=== PATIENT | male | born 1950 | race Caucasian/White ===

== ENCOUNTER → 2023-10-21 08:48 | Outpatient (CLI) | payer OTHER, SELFPAY ==
[2023-10-21 10:24] LABS: Add Manual Diff / Slide Review NO; Basophils Absolute Auto 0 /uL (0-100); Basophils Percent Auto 0.8 % (0-2); Eosinophils Absolute Auto 100 /uL (0-450); Eosinophils Percent Auto 1.9 % (2-4); Hemoglobin 15.6 g/dL (13.5-17.5); Lymphocytes Absolute Auto 800 /uL (1100-4500); Lymphocytes Percent Auto 13.3 % (25-40); Mean Corpuscular HGB Conc 34.6 % (30-36); Mean Corpuscular Hemoglobin 32.6 PG (26-34); Mean Corpuscular Volume 94.1 fL (80-100); Monocytes Absolute Auto 800 /uL (0-900); Monocytes Percent Auto 14.1 % (3-14); Neutrophils Absolute Auto 4100 /uL (1500-7000); Neutrophils Percent Auto 69.9 % (50-75); Platelet Count 253 X10^3/uL (150-400); Red Blood Cell Count 4.78 X10^6/uL (4.5-5.9); Red Cell Distribution Width 12.8 % (11.6-14.8); White Blood Cell Count 5.9 X10^3/uL (4.5-11.0)
[2023-10-21 11:06] LABS: Alanine Aminotransferase 24 IU/L (<50); Albumin 4.4 g/dL (3.5-5.0); Albumin Globulin Ratio 1.4 (1.0-2.8); Alkaline Phosphatase 61 U/L (38-126); Aspartate Aminotransferase 30 IU/L (17-59); BUN Creatinine Ratio 16.9 (6-22); Bilirubin Total 0.9 mg/dL (0.2-1.3); Blood Urea Nitrogen 14 mg/dL (9-20); Calcium 10.1 mg/dL (8.4-10.2); Carbon Dioxide 28 mmol/L (22-32); Chloride 100 mmol/L (98-107); Cholesterol 245 mg/dL (140-199); Estimated Glomerular Filt Rate > 60 mL/min (>60); Globulin 3.2 g/dL (1.7-4.1); Glucose 134 mg/dL (80-110); HDL Cholesterol 54 mg/dL (40-60); HEMOLYSIS < 15 (0-50); LDL Cholesterol Calculated 164 mg/dL (<100); Potassium 4.9 mmol/L (3.4-5.1); Sodium 137 mmol/L (137-145); Total Protein 7.6 g/dL (6.3-8.2); Triglycerides 135 mg/dL (35-150)
[2023-10-22 17:43] LABS: Hep C Virus Ab w/Reflex Quant NEGATIVE s/c (NEGATIVE)
== END ==
PROVIDERS: Family Provider Family Medicine; PCP Family Medicine; Referring Provider Family Medicine; Visit Provider Family Medicine
DX: F32.A Depression, unspecified (principal); I10 Essential (primary) hypertension; F17.200 Nicotine dependence, unspecified, uncomplicated; Z11.59 Encounter for screening for other viral diseases
CPT/HCPCS: 36415; 80053; 80061; 85025; 86803

== ENCOUNTER → 2024-11-17 11:53 | Outpatient (CLI) | payer OTHER, SELFPAY ==
[2024-11-18 11:14] LABS: Fecal Immunochemical Test Positive (Negative)
== END ==
LOC: LAB 11:54
PROVIDERS: Family Provider Family Medicine; PCP Family Medicine; Referring Provider Family Medicine; Visit Provider Family Medicine
DX: Z12.11 Encounter for screening for malignant neoplasm of colon (principal)
CPT/HCPCS: 82274

== ENCOUNTER → 2024-11-25 11:24 | Outpatient (CLI) | payer OTHER, SELFPAY ==
[2024-11-25 12:08] LABS: Hematocrit 41.1 % (41-53); Hemoglobin 13.7 g/dL (13.5-17.5); Mean Corpuscular HGB Conc 33.3 % (30-36); Mean Corpuscular Hemoglobin 28.8 PG (26-34); Mean Corpuscular Volume 86.4 fL (80-100); Platelet Count 453 X10^3/uL (150-400); Red Blood Cell Count 4.76 X10^6/uL (4.5-5.9); Red Cell Distribution Width 14.3 % (11.6-14.8); White Blood Cell Count 6.6 X10^3/uL (4.5-11.0)
[2024-11-25 12:37] LABS: Alanine Aminotransferase 16 IU/L (<50); Albumin 4.3 g/dL (3.5-5.0); Albumin Globulin Ratio 1.4 (1.0-2.8); Alkaline Phosphatase 98 U/L (38-126); Aspartate Aminotransferase 25 IU/L (17-59); BUN Creatinine Ratio 13.2 (6-22); Bilirubin Total 0.5 mg/dL (0.2-1.3); Blood Urea Nitrogen 10 mg/dL (9-20); Calcium 9.4 mg/dL (8.4-10.2); Carbon Dioxide 25 mmol/L (22-32); Chloride 100 mmol/L (98-107); Cholesterol 189 mg/dL (140-199); Estimated Glomerular Filt Rate > 60 mL/min (>60); Globulin 3.1 g/dL (1.7-4.1); Glucose 112 mg/dL (80-110); HDL Cholesterol 51 mg/dL (40-60); HEMOLYSIS < 15 (0-50); LDL Cholesterol Calculated 104 mg/dL (<100); Potassium 4.5 mmol/L (3.4-5.1); Sodium 136 mmol/L (137-145); Total Protein 7.4 g/dL (6.3-8.2); Triglycerides 168 mg/dL (35-150)
== END ==
PROVIDERS: Family Provider Family Medicine; PCP Family Medicine; Referring Provider Family Medicine; Visit Provider Family Medicine
DX: R10.2 Pelvic and perineal pain (principal); E78.5 Hyperlipidemia, unspecified; Z00.00 Encounter for general adult medical examination without abnormal findings; I10 Essential (primary) hypertension
CPT/HCPCS: 36415; 80053; 80061; 85027

== ENCOUNTER → 2025-01-09 11:47 | Outpatient (CLI) | payer OTHER, SELFPAY ==
--- NOTE | 2025-01-09 11:49 | DI.CT.S_ITS ---
PROCEDURE: CT LUNG LOW DOSE SCREENING INDICATIONS: screening TECHNIQUE: Noncontrast 2.0-2.5 mm thick sections acquired from the pulmonary apices to the posterior costophrenic angles. 7 mm thick axial MIP, and 5 mm coronal and sagittal reformats were then acquired. For radiation dose reduction, the following was used: automated exposure control, adjustment of mA and/or kV according to patient size. COMPARISON: None. FINDINGS: Image quality: Diagnostic. Lower Neck: No enlarged lymph nodes. Thyroid: No thyroid nodules which require sonographic follow up, per consensus guidelines. Axillae: No enlarged lymph nodes. Chest Wall: Unremarkable. Bones: No suspicious osseous lesion. Lungs and Pleura: No pneumothorax or pleural effusions. Mild emphysematous change. Mild secretions in the lower trachea. No consolidation or suspicious nodules. Heart: Heart size is normal. Moderate to severe coronary artery calcifications. No pericardial effusion. Thoracic Vessels: The aorta and pulmonary arteries demonstrate normal size. Mediastinum and Ashia: No enlarged lymph nodes. Esophagus: No wall thickening. No hiatal hernia. Upper Abdomen: Visualized upper abdomen solid organs and bowel loops appear normal. IMPRESSION: No suspicious pulmonary nodules. LUNG-RADS 1; continued annual screening, if eligible. Clinically Significant Non-pulmonary Findings: Moderate to severe coronary artery calcifications. Dictated by: Syed Coleman M.D. on 01/09/2025 at 17:26 Approved by: Syed Coleman M.D. on 01/09/2025 at 17:30
--- NOTE | 2025-01-09 11:49 | DI.US.S_ITS ---
PROCEDURE: US ABD AORTA ANEURYSM SCREEN INDICATIONS: screening TECHNIQUE: Real time scanning was performed of the aorta and iliac arteries, with image documentation. COMPARISON: None. FINDINGS: Aorta: Proximal aortic diameter measures 2.4 cm. Mid-aorta measures 2.1 cm. Distal aortic diameter is 1.9 cm. Iliac arteries: Right common iliac artery measures 0.9 cm. Left common iliac artery measures 0.9 cm. IMPRESSION: Negative for aneurysm. Dictated by: Shree Snider M.D. on 01/09/2025 at 12:32 Approved by: Shree Snider M.D. on 01/09/2025 at 12:32
== END ==
PROVIDERS: Family Provider Family Medicine; PCP Family Medicine; Referring Provider Family Medicine; Visit Provider Family Medicine
DX: F17.210 Nicotine dependence, cigarettes, uncomplicated (principal); Z12.2 Encounter for screening for malignant neoplasm of respiratory organs; Z13.6 Encounter for screening for cardiovascular disorders; I25.10 Atherosclerotic heart disease of native coronary artery without angina pectoris
CPT/HCPCS: 71271; 76706

== ENCOUNTER 2025-02-02 07:16 | Day surgery (SDC) | payer OTHER, SELFPAY ==
[2025-02-02 08:10] VITALS: BP 100/62; PULSE 92; RESP 18; TEMP 36.5; O2SAT 97
[2025-02-02] MEDS: LACTATED RINGERS 1,000 ML 42 ML IV (08:10)
--- NOTE | 2025-02-02 08:15 | PM.HP.IH.1 ---
History of Present Illness History of Present Illness Date Patient Seen: 02/02/25 Time Patient Seen: 08:15 Chief complaint: Screening Colonoscopy Narrative: Lele is a 74-year-old man who presents for a colonoscopy. He has never had 1 before. He reports that he has had burning pain near his rectum recently. He denies straining. He denies constipation. He denies hard stools. [facility] Medical History (Updated 02/02/25 @ 08:16 by Jose Gibbons MD) Hyperlipidemia Encounter for subsequent annual wellness visit (AWV) in Medicare patient Cervical radiculopathy History of Guillain-Gonvick syndrome Guillain-Gonvick Depression, unspecified Tobacco dependence Benign essential HTN Social History Smoking Status: Current every day smoker alcohol intake: current Meds Home Medications and Allergies Home Medications Medication Instructions Recorded Confirmed Type atorvastatin 20 mg tablet (Lipitor) 20 mg PO DAILY #90 tabs 11/25/24 02/02/25 Rx duloxetine 30 mg capsule,delayed 30 mg PO DAILY #90 caps 11/25/24 02/02/25 Rx release (Cymbalta) losartan 25 mg tablet 25 mg PO DAILY blood pressure #90 11/25/24 02/02/25 Rx tabs naproxen 500 mg tablet 500 mg PO BID PRN pain #60 tabs 11/25/24 02/02/25 Rx Allergies Allergy/AdvReac Type Severity Reaction Status Date / Time No Known Drug Allergies Allergy Verified 02/02/25 07:40 Exam Vital Signs (past 8 hours): - 02/02/25 08:10 Temperature 97.7 F Pulse Rate 92 H Respiratory Rate 18 Blood Pressure 100/62 Pulse Oximetry 97 Oxygen Delivery Method Room Air Oxygen Delivery Method Room Air Const General: No acute distress Assessment & Plan Assessment and plan (1) Colon cancer screening: Status: Acute Plan Colonoscopy Time-Based Coding :: [TOTAL MINUTES] spent with patient and on the chart (including review of chart, obtaining history, exam, reviewing outside data, placing orders, documenting exam and treatment plan, and counseling patient) on [DATE]. [employer] Document charge(s): No
--- NOTE | 2025-02-02 08:28 | PM.OP.COLON ---
Operative Date/Time/Diagnoses Date of procedure: 02/02/25 Time of procedure: 08:28 Pre-op diagnosis: Colon cancer screening Post-op diagnosis: same Procedure & Clinicians Study performed: Colonoscopy (aborted) Same procedure as scheduled: Yes Surgeon: Jose Gibbons Procedure Notes Procedure in detail: Surgeon: Jose Gibbons MD Anesthesia: Brandi Chavira CRNA Procedure: The patient was brought to the endoscopy suite, placed in left lateral decubitus position. The patient was connected to monitoring devices. A time-out was performed. Sedation was administered. Once the patient was adequately sedated, a digital rectal exam was performed and was significant for semi solid stool in the rectal vault. The colonoscope was inserted into the rectum but there was copious semi solid stool in the rectum and the procedure was terminated. The scope was removed. The patient was awakened and brought to recovery. Scope withdrawal time: Not applicable Sedation time: 1 minute EBL: 0 Findings: Inadequate prep Post-procedure Disposition: PACU
[2025-02-02 08:32] VITALS: BP 90/54; PULSE 85; RESP 12; TEMP 36.2; O2SAT 94
[2025-02-02 08:45] VITALS: BP 96/54; PULSE 86; RESP 16; O2SAT 99
== END 2025-02-02 08:58 | disposition home or self-care (01) ==
PROVIDERS: Family Provider Family Medicine; PCP Family Medicine; Referring Provider Surgery; Visit Provider Surgery
PROC: 0DJD8ZZ Inspection of Lower Intestinal Tract, Via Natural or Artificial Opening Endoscopic (ICD-10-PCS; CPT 45378; principal; 2025-02-02 08:30)
DX: Z12.11 Encounter for screening for malignant neoplasm of colon (principal); Z53.09 Procedure and treatment not carried out because of other contraindication
CPT/HCPCS: G0121; J2704

== ENCOUNTER 2025-02-05 15:08 | Emergency (ER) | payer OTHER, SELFPAY ==
[2025-02-05] VITALS (15 sets, daily range): BP systolic 102–126; BP diastolic 56–63; PULSE 68–86; RESP 13–22; TEMP 37; O2SAT 91–99; BMI 20.2
[2025-02-05 17:28] LABS: Bacteria Urine Many (>30); Culture Indicated Urine Specimen Cultured; RBC Urine 0-1/HPF (0-5/HPF); Squamous Epithelial Cell Urine 0-1 /HPF (0-5/HPF); Urine Volume 10mL (spun); WBC Urine 0-1/HPF (0-5/HPF)
--- NOTE | 2025-02-05 17:50 | ED.ABDPAIN ---
HPI - Abdominal Pain <Romy Peralta PA-C - Last Filed: 02/05/25 19:50> General Chief Complaint: Abdominal Pain Stated Complaint: abd px Time Seen by Provider: 02/05/25 17:50 History of Present Illness HPI narrative: Mr. Painter is a pleasant 74-year-old male with a past medical history of mood disorder, hypertension, hyperlipidemia who presents to the emergency department for acute on chronic rectal pain. Patient states he has been suffering with rectal pain for the last few months and he was supposed to have a colonoscopy earlier this month however it was failed because he did not have a good bowel prep. States it is rectal pain has been getting worse recently. His rectal pain is always present, it is worse before a bowel movement and somewhat relieved after a bowel movement. His doctor had prescribed him naproxen for the pain however this makes him throw up so it does not help. Tylenol does help a little bit. He denies any nausea, vomiting, fevers, chills, chest pain, shortness of breath, black or bloody stools. He does not engage in any anal intercourse. Denies dysuria but he does go small amounts frequently. Related Data Previous Rx's Medication Instructions Recorded atorvastatin 20 mg tablet (Lipitor) 20 mg PO DAILY #90 tabs 11/25/24 duloxetine 30 mg capsule,delayed 30 mg PO DAILY #90 caps 11/25/24 release (Cymbalta) losartan 25 mg tablet 25 mg PO DAILY blood pressure #90 11/25/24 tabs Allergies Allergy/AdvReac Type Severity Reaction Status Date / Time No Known Drug Allergies Allergy Verified 02/02/25 07:40 Review of Systems <Romy Peralta PA-C - Last Filed: 02/05/25 19:50> Review of Systems ROS Unobtainable: All systems reviewed & are unremarkable except as noted in HPI and below Patient History <Romy Peralta PA-C - Last Filed: 02/05/25 19:50> Medical History Hyperlipidemia Encounter for subsequent annual wellness visit (AWV) in Medicare patient Cervical radiculopathy History of Guillain-Ixonia syndrome Guillain-Ixonia Depression, unspecified Tobacco dependence Benign essential HTN Social History Smoking Status: Current every day smoker alcohol intake: current Smoking Status: Current every day smoker tobacco type: cigarettes Exam <Romy Peralta PA-C - Last Filed: 02/05/25 19:50> Narrative Exam Narrative: GENERAL: 74 year old patient appears stated age. Thin patient, in no acute distress. HEAD: Atraumatic. Normocephalic. ENT: Nose without bleeding, purulent drainage. Airway patent. CARDIOVASCULAR: Regular rate and rhythm. RESPIRATORY: Nonlabored respirations. Speaking in clear, full sentences. Clear to auscultation. GASTROINTESTINAL: Abdomen soft, non-tender, nondistended. RECTAL: Small external skin tag on anus, no palpable internal hemorrhoids. He does have what appears to be palpable enlarged prostate versus mass structure, decreased rectal tone. No blood. NEURO: AOx3. Very hard of hearing. Clear speech. Moves all 4 extremities appropriately. SKIN: No rash or erythema of visible areas Initial Vital Signs Initial Vital Signs: Vital Signs Temperature 98.6 F 02/05/25 15:16 Pulse Rate 86 02/05/25 15:16 Respiratory Rate 18 02/05/25 15:16 Blood Pressure 126/59 L 02/05/25 15:16 Pulse Oximetry 97 02/05/25 15:16 Oxygen Delivery Method Room Air 02/05/25 15:16 <Isaías Siu MD - Last Filed: 02/06/25 00:14> Initial Vital Signs Initial Vital Signs: Vital Signs Temperature 98.6 F 02/05/25 15:16 Pulse Rate 86 02/05/25 15:16 Respiratory Rate 18 02/05/25 15:16 Blood Pressure 126/59 L 02/05/25 15:16 Pulse Oximetry 97 02/05/25 15:16 Oxygen Delivery Method Room Air 02/05/25 15:16 Course <Romy Peralta PA-C - Last Filed: 02/05/25 19:50> Orders Ordered: ED Orders 02/05/25 17:15 Urine Culture Stat Urine Microscopic Stat 02/05/25 17:45 Complete Blood Count AUTO DIFF Stat Comprehensive Metabolic Panel Stat Lipase Stat 02/05/25 17:57 CT abdomen pelvis w con Stat 02/05/25 19:40 Type and Screen Stat 02/05/25 19:50 Blood Culture Stat 02/05/25 23:17 Hemoglobin and Hematocrit Stat Ondansetron HCl (Ondansetron 4 Mg/2 Ml Inj) 4 mg IV NOW PRN PRN Reason: Nausea And Vomiting Last Admin: 02/05/25 18:14 Dose: 4 mg Documented By: MARQUIS Ondansetron HCl (Ondansetron 4 Mg Odt) 4 mg PO NOW PRN PRN Reason: Nausea And Vomiting Discontinued Medications Hydromorphone HCl (Hydromorphone 0.5 Mg Inj) 0.5 mg IV NOW ONE Stop: 02/05/25 22:13 Last Admin: 02/05/25 22:29 Dose: 0.5 mg Documented By: MARYSOL Sodium Chloride (Normal Saline 0.9%) 1,000 mls @ 1,000 mls/hr IV BOLUS ONE Stop: 02/05/25 19:17 Last Infusion: 02/05/25 19:52 Dose: Infused Documented By: Admin: 02/05/25 18:38 Dose: 1,000 mls/hr Documented By: MARQUIS Piperacillin Sod/Tazobactam (Sod 4.5 gm/ Sodium Chloride) 100 mls @ 200 mls/hr IV NOW ONE Stop: 02/05/25 19:00 Last Infusion: 02/05/25 20:27 Dose: Infused Documented By: Admin: 02/05/25 19:52 Dose: 200 mls/hr Documented By: NICHOLAS Ketorolac Tromethamine (Ketorolac 30 Mg/Ml Vial) 15 mg IV NOW ONE Stop: 02/05/25 17:57 Last Admin: 02/05/25 18:14 Dose: 15 mg Documented By: MARQUIS Consultations Consultation #1: Called by radiologist informed of CT revealing rectal cancer with perforation and mets, free air and free fluid, liver Mets, gas in sacrum. Consulting with attending ED physician. Time: 18:53 Vital Signs Vital signs: Vital Signs - 8 hr 02/05/25 18:37 02/05/25 19:00 02/05/25 19:03 Temperature Pulse Rate 78 79 Respiratory Rate Blood Pressure 118/59 L Pulse Oximetry 99 91 Oxygen Delivery Method 02/05/25 19:03 02/05/25 19:30 02/05/25 19:30 Temperature Pulse Rate 78 79 Respiratory Rate 18 Blood Pressure 116/58 L Pulse Oximetry 94 96 Oxygen Delivery Method 02/05/25 20:00 02/05/25 20:00 02/05/25 20:29 Temperature Pulse Rate 72 78 Respiratory Rate Blood Pressure 123/61 Pulse Oximetry 96 96 Oxygen Delivery Method Room Air 02/05/25 20:30 02/05/25 21:00 02/05/25 21:00 Temperature Pulse Rate 68 Respiratory Rate Blood Pressure 102/58 L 118/61 Pulse Oximetry 92 Oxygen Delivery Method 02/05/25 21:30 02/05/25 21:30 02/05/25 22:00 Temperature Pulse Rate 69 74 Respiratory Rate 20 20 Blood Pressure 113/63 Pulse Oximetry 92 92 Oxygen Delivery Method 02/05/25 22:00 02/05/25 22:30 02/05/25 22:30 Temperature Pulse Rate 79 Respiratory Rate 20 Blood Pressure 109/56 L 122/62 Pulse Oximetry 96 Oxygen Delivery Method Room Air 02/05/25 23:00 02/05/25 23:30 02/05/25 23:38 Temperature Pulse Rate 68 76 Respiratory Rate 19 13 Blood Pressure 123/62 Pulse Oximetry 95 93 Oxygen Delivery Method Room Air 02/05/25 23:38 Temperature 98.6 F Pulse Rate 69 Respiratory Rate 22 Blood Pressure Pulse Oximetry 93 Oxygen Delivery Method <Isaías Siu MD - Last Filed: 02/06/25 00:14> Orders Ordered: ED Orders 02/05/25 17:15 Urine Culture Stat Urine Microscopic Stat 02/05/25 17:45 Complete Blood Count AUTO DIFF Stat Comprehensive Metabolic Panel Stat Lipase Stat 02/05/25 17:57 CT abdomen pelvis w con Stat 02/05/25 19:40 Type and Screen Stat 02/05/25 19:50 Blood Culture Stat 02/05/25 23:17 Hemoglobin and Hematocrit Stat Ondansetron HCl (Ondansetron 4 Mg/2 Ml Inj) 4 mg IV NOW PRN PRN Reason: Nausea And Vomiting Last Admin: 02/05/25 18:14 Dose: 4 mg Documented By: MARQUIS Ondansetron HCl (Ondansetron 4 Mg Odt) 4 mg PO NOW PRN PRN Reason: Nausea And Vomiting Discontinued Medications Hydromorphone HCl (Hydromorphone 0.5 Mg Inj) 0.5 mg IV NOW ONE Stop: 02/05/25 22:13 Last Admin: 02/05/25 22:29 Dose: 0.5 mg Documented By: MARYSOL Sodium Chloride (Normal Saline 0.9%) 1,000 mls @ 1,000 mls/hr IV BOLUS ONE Stop: 02/05/25 19:17 Last Infusion: 02/05/25 19:52 Dose: Infused Documented By: Admin: 02/05/25 18:38 Dose: 1,000 mls/hr Documented By: MARQUIS Piperacillin Sod/Tazobactam (Sod 4.5 gm/ Sodium Chloride) 100 mls @ 200 mls/hr IV NOW ONE Stop: 02/05/25 19:00 Last Infusion: 02/05/25 20:27 Dose: Infused Documented By: Admin: 02/05/25 19:52 Dose: 200 mls/hr Documented By: NICHOLAS Ketorolac Tromethamine (Ketorolac 30 Mg/Ml Vial) 15 mg IV NOW ONE Stop: 02/05/25 17:57 Last Admin: 02/05/25 18:14 Dose: 15 mg Documented By: MARQUIS Vital Signs Vital signs: Vital Signs - 8 hr 02/05/25 18:37 02/05/25 19:00 02/05/25 19:03 Temperature Pulse Rate 78 79 Respiratory Rate Blood Pressure 118/59 L Pulse Oximetry 99 91 Oxygen Delivery Method 02/05/25 19:03 02/05/25 19:30 02/05/25 19:30 Temperature Pulse Rate 78 79 Respiratory Rate 18 Blood Pressure 116/58 L Pulse Oximetry 94 96 Oxygen Delivery Method 02/05/25 20:00 02/05/25 20:00 02/05/25 20:29 Temperature Pulse Rate 72 78 Respiratory Rate Blood Pressure 123/61 Pulse Oximetry 96 96 Oxygen Delivery Method Room Air 02/05/25 20:30 02/05/25 21:00 02/05/25 21:00 Temperature Pulse Rate 68 Respiratory Rate Blood Pressure 102/58 L 118/61 Pulse Oximetry 92 Oxygen Delivery Method 02/05/25 21:30 02/05/25 21:30 02/05/25 22:00 Temperature Pulse Rate 69 74 Respiratory Rate 20 20 Blood Pressure 113/63 Pulse Oximetry 92 92 Oxygen Delivery Method 02/05/25 22:00 02/05/25 22:30 02/05/25 22:30 Temperature Pulse Rate 79 Respiratory Rate 20 Blood Pressure 109/56 L 122/62 Pulse Oximetry 96 Oxygen Delivery Method Room Air 02/05/25 23:00 02/05/25 23:30 02/05/25 23:38 Temperature Pulse Rate 68 76 Respiratory Rate 19 13 Blood Pressure 123/62 Pulse Oximetry 95 93 Oxygen Delivery Method Room Air 02/05/25 23:38 Temperature 98.6 F Pulse Rate 69 Respiratory Rate 22 Blood Pressure Pulse Oximetry 93 Oxygen Delivery Method MDM - Abdominal Pain <Romy Peralta PA-C - Last Filed: 02/05/25 19:50> Medical Records Attestation: I reviewed the patient's medical records. Lab Data 02/05/25 23:17 02/05/25 17:45 Labs: Lab Results 02/05/25 02/05/25 02/05/25 Range/Units 17:15 17:45 19:40 WBC 7.6 (4.5-11.0) X10^3/uL RBC 3.34 L (4.5-5.9) X10^6/uL Hgb 8.5 L (13.5-17.5) g/dL Hct 25.9 L (41-53) % MCV 77.5 L (80-100) fL MCH 25.5 L (26-34) PG MCHC 32.9 (30-36) % RDW 15.8 H (11.6-14.8) % Plt Count 491 H (150-400) X10^3/uL Neut % (Auto) 80.9 H (50-75) % Lymph % (Auto) 5.9 L (25-40) % [place] % (Auto) 12.5 (3-14) % Eos % (Auto) 0.4 L (2-4) % Baso % (Auto) 0.3 (0-2) % Neut # (Auto) 6100 (9666-2453) /uL Lymph # (Auto) 400 L (3397-2152) /uL [place] # (Auto) 900 (0-900) /uL Eos # (Auto) 0 (0-450) /uL Baso # (Auto) 0 (0-100) /uL Sodium 130 L (137-145) mmol/L Potassium 3.5 (3.4-5.1) mmol/L Chloride 94 L (98-107) mmol/L Carbon Dioxide 31 (22-32) mmol/L BUN 12 (9-20) mg/dL Creatinine 0.65 L (0.66-1.25) mg/dL Estimated GFR > 60 (>60) mL/min BUN/Creatinine Ratio 18.5 (6-22) Glucose 105 H (70-99) mg/dL Calcium 8.4 (8.4-10.2) mg/dL Total Bilirubin 0.6 (0.2-1.3) mg/dL AST 27 (17-59) IU/L ALT 17 (<50) IU/L Alkaline Phosphatase 101 (38-126) U/L Total Protein 6.6 (6.3-8.2) g/dL Albumin 3.1 L (3.5-5.0) g/dL Globulin 3.5 (1.7-4.1) g/dL Albumin/Globulin Ratio 0.9 L (1.0-2.8) Lipase 55 (23-300) U/L Urine RBC 0-1/hpf (0-5/HPF) Urine WBC 0-1/hpf (0-5/HPF) Ur Squamous Epith Cells 0-1 /hpf (0-5/HPF) Urine Bacteria Many (>30) H (None) Ur Culture Indicated? Specimen cultured Vol Urine Centrifuged 10ml (spun) Blood Type A Positive Antibody Screen Negative 02/05/25 Range/Units 23:17 WBC (4.5-11.0) X10^3/uL RBC (4.5-5.9) X10^6/uL Hgb 7.4 L (13.5-17.5) g/dL Hct 22.4 L (41-53) % MCV (80-100) fL MCH (26-34) PG MCHC (30-36) % RDW (11.6-14.8) % Plt Count (150-400) X10^3/uL Neut % (Auto) (50-75) % Lymph % (Auto) (25-40) % [place] % (Auto) (3-14) % Eos % (Auto) (2-4) % Baso % (Auto) (0-2) % Neut # (Auto) (5288-3596) /uL Lymph # (Auto) (1801-2774) /uL [place] # (Auto) (0-900) /uL Eos # (Auto) (0-450) /uL Baso # (Auto) (0-100) /uL Sodium (137-145) mmol/L Potassium (3.4-5.1) mmol/L Chloride (98-107) mmol/L Carbon Dioxide (22-32) mmol/L BUN (9-20) mg/dL Creatinine (0.66-1.25) mg/dL Estimated GFR (>60) mL/min BUN/Creatinine Ratio (6-22) Glucose (70-99) mg/dL Calcium (8.4-10.2) mg/dL Total Bilirubin (0.2-1.3) mg/dL AST (17-59) IU/L ALT (<50) IU/L Alkaline Phosphatase (38-126) U/L Total Protein (6.3-8.2) g/dL Albumin (3.5-5.0) g/dL Globulin (1.7-4.1) g/dL Albumin/Globulin Ratio (1.0-2.8) Lipase (23-300) U/L Urine RBC (0-5/HPF) Urine WBC (0-5/HPF) Ur Squamous Epith Cells (0-5/HPF) Urine Bacteria (None) Ur Culture Indicated? Vol Urine Centrifuged Blood Type Antibody Screen Point of care testing: Urine Dip Bedside Urine Glucose Negative Bedside Urine Bilirubin - Negative Bedside Urine Ketone - Negative Urine Specific [place] 1.010 Bedside Urine Occult Blood +/- Bedside Urine pH 6.0 Bedside Urine Protein +/- 15 Bedside Urine Urobilinogen 1+ 2mg Bedside Urine Nitrite + Positive Bedside Urine Leukocytes - Negative Esterase MDM Narrative Medical decision making narrative: 74-year-old male with a past medical history of mood disorder, hypertension, hyperlipidemia who presents to the emergency department for acute on chronic rectal pain. Differential diagnosis includes but is not limited to rectal abscess, internal hemorrhoids, and large prostate, proctitis, diverticulitis, etc. On exam patient is in no acute distress, nontoxic appearing, vital signs appropriate. External rectal exam reveals no gross blood on internal exam, there is decreased rectal tone and palpable enlarged prostate versus masslike structure we will proceed with CBC, CMP, UA, CT abdomen and pelvis with IV contrast, treat pain with Toradol. <Isaías Siu MD - Last Filed: 02/06/25 00:14> Lab Data Labs: Lab Results 02/05/25 02/05/25 02/05/25 Range/Units 17:15 17:45 19:40 WBC 7.6 (4.5-11.0) X10^3/uL RBC 3.34 L (4.5-5.9) X10^6/uL Hgb 8.5 L (13.5-17.5) g/dL Hct 25.9 L (41-53) % MCV 77.5 L (80-100) fL MCH 25.5 L (26-34) PG MCHC 32.9 (30-36) % RDW 15.8 H (11.6-14.8) % Plt Count 491 H (150-400) X10^3/uL Neut % (Auto) 80.9 H (50-75) % Lymph % (Auto) 5.9 L (25-40) % [place] % (Auto) 12.5 (3-14) % Eos % (Auto) 0.4 L (2-4) % Baso % (Auto) 0.3 (0-2) % Neut # (Auto) 6100 (1214-4493) /uL Lymph # (Auto) 400 L (0270-8608) /uL [place] # (Auto) 900 (0-900) /uL Eos # (Auto) 0 (0-450) /uL Baso # (Auto) 0 (0-100) /uL Sodium 130 L (137-145) mmol/L Potassium 3.5 (3.4-5.1) mmol/L Chloride 94 L (98-107) mmol/L Carbon Dioxide 31 (22-32) mmol/L BUN 12 (9-20) mg/dL Creatinine 0.65 L (0.66-1.25) mg/dL Estimated GFR > 60 (>60) mL/min BUN/Creatinine Ratio 18.5 (6-22) Glucose 105 H (70-99) mg/dL Calcium 8.4 (8.4-10.2) mg/dL Total Bilirubin 0.6 (0.2-1.3) mg/dL AST 27 (17-59) IU/L ALT 17 (<50) IU/L Alkaline Phosphatase 101 (38-126) U/L Total Protein 6.6 (6.3-8.2) g/dL Albumin 3.1 L (3.5-5.0) g/dL Globulin 3.5 (1.7-4.1) g/dL Albumin/Globulin Ratio 0.9 L (1.0-2.8) Lipase 55 (23-300) U/L Urine RBC 0-1/hpf (0-5/HPF) Urine WBC 0-1/hpf (0-5/HPF) Ur Squamous Epith Cells 0-1 /hpf (0-5/HPF) Urine Bacteria Many (>30) H (None) Ur Culture Indicated? Specimen cultured Vol Urine Centrifuged 10ml (spun) Blood Type A Positive Antibody Screen Negative 02/05/25 Range/Units 23:17 WBC (4.5-11.0) X10^3/uL RBC (4.5-5.9) X10^6/uL Hgb 7.4 L (13.5-17.5) g/dL Hct 22.4 L (41-53) % MCV (80-100) fL MCH (26-34) PG MCHC (30-36) % RDW (11.6-14.8) % Plt Count (150-400) X10^3/uL Neut % (Auto) (50-75) % Lymph % (Auto) (25-40) % [place] % (Auto) (3-14) % Eos % (Auto) (2-4) % Baso % (Auto) (0-2) % Neut # (Auto) (7652-9352) /uL Lymph # (Auto) (1905-2350) /uL [place] # (Auto) (0-900) /uL Eos # (Auto) (0-450) /uL Baso # (Auto) (0-100) /uL Sodium (137-145) mmol/L Potassium (3.4-5.1) mmol/L Chloride (98-107) mmol/L Carbon Dioxide (22-32) mmol/L BUN (9-20) mg/dL Creatinine (0.66-1.25) mg/dL Estimated GFR (>60) mL/min BUN/Creatinine Ratio (6-22) Glucose (70-99) mg/dL Calcium (8.4-10.2) mg/dL Total Bilirubin (0.2-1.3) mg/dL AST (17-59) IU/L ALT (<50) IU/L Alkaline Phosphatase (38-126) U/L Total Protein (6.3-8.2) g/dL Albumin (3.5-5.0) g/dL Globulin (1.7-4.1) g/dL Albumin/Globulin Ratio (1.0-2.8) Lipase (23-300) U/L Urine RBC (0-5/HPF) Urine WBC (0-5/HPF) Ur Squamous Epith Cells (0-5/HPF) Urine Bacteria (None) Ur Culture Indicated? Vol Urine Centrifuged Blood Type Antibody Screen Point of care testing: Urine Dip Bedside Urine Glucose Negative Bedside Urine Bilirubin - Negative Bedside Urine Ketone - Negative Urine Specific [place] 1.010 Bedside Urine Occult Blood +/- Bedside Urine pH 6.0 Bedside Urine Protein +/- 15 Bedside Urine Urobilinogen 1+ 2mg Bedside Urine Nitrite + Positive Bedside Urine Leukocytes - Negative Esterase MDM Narrative Medical decision making narrative: 74-year-old male with a past medical history of mood disorder, hypertension, hyperlipidemia who presents to the emergency department for acute on chronic rectal pain. Differential diagnosis includes but is not limited to rectal abscess, internal hemorrhoids, and large prostate, proctitis, diverticulitis, etc. On exam patient is in no acute distress, nontoxic appearing, vital signs appropriate. External rectal exam reveals no gross blood on internal exam, there is decreased rectal tone and palpable enlarged prostate versus masslike structure we will proceed with CBC, CMP, UA, CT abdomen and pelvis with IV contrast, treat pain with Toradol. 02/05/25, Salbador Tellez. 74-year-old male with history of hypertension, has 1 month duration rectal pain, was scheduled for colonoscopy with local surgeon 02/02/2025 which was canceled due to poor GI prep, had been taking naproxen but discontinued this due to associated nausea and vomiting nonbloody, has increasing and more constant rectal pain. No hematochezia or melena symptoms. Hemoglobin 8.5 today lower than previous comparison 13.[address] abdomen and pelvis ordered. Assumed care. CT abdomen and pelvis with IV contrast. Impressions: ?Abnormal rectal wall thickening seen, with adjacent free air and free fluid, representing perforated neoplasm until proven otherwise. Gas is seen within the right aspect of the sacrum, which is attributed to bony involvement for this patient's neoplasm. Hypo enhancing masses can be seen within the liver, representing metastatic disease until proven otherwise. Colonic diverticulosis seen, without findings of active diverticulitis. There is a mild fat containing right inguinal hernia. There is free fluid seen within the right testicle, which maybe related to the hernia.? See radiology report. Perforated viscus as above, blood cultures, IV Zosyn. Rectal cancer suspected on CT imaging, with viscous perforation, also hepatic metastases. Will likely need referral to colorectal surgery capable facility, with oncology services as needed. Likely will need transfer. Keep NPO. Urinalysis shows many bacteria, urine culture. Should have coverage with IV Zosyn given prior. 2129, discussed with [facility] colorectal surgeon Dr. Lowe, can consult, advises transfer admit to their hospitalist service. Await call back. 2199, discussed with [facility] hospitalist Dr. Lofton who accepts patient for transfer, to coordinate with colorectal surgery and likely oncology services. Await bed availability/assignment. 233, bed available, will initiate EMS transport. 001, departure with ground EMS to [facility] Discharge Plan Departure Patient Disposition: [facility] Clinical Impression: Mass in rectum, Anemia, Perforated abdominal viscus, Urinary tract infection, Rectal pain Prescriptions: No Action atorvastatin [Lipitor] 20 mg tablet 20 mg PO DAILY Qty: 90 3RF losartan 25 mg tablet 25 mg PO DAILY Qty: 90 3RF duloxetine [Cymbalta] 30 mg capsule,delayed release(DR/EC) 30 mg PO DAILY Qty: 90 3RF Referrals: Clint Rivera DO [Primary Care Provider] -
--- NOTE | 2025-02-05 17:57 | DI.CT.S_ITS ---
PROCEDURE: CT ABDOMEN PELVIS W CON INDICATIONS: rectal pain TECHNIQUE: After the administration of intravenous contrast, axial sections acquired from the lung bases to the pubic symphysis. Coronal and sagittal reformats were performed. For radiation dose reduction, the following was used: automated exposure control, adjustment of mA and/or kV according to patient size. COMPARISON: [facility], CT, CT LUNG LOW DOSE SCREENING, 01/09/2025, 11:55. [facility], US, US ABD AORTA ANEURYSM SCREEN, 01/09/2025, 12:03. FINDINGS: Image quality: Diagnostic. Lower Chest: There is a trace right-sided pleural effusion. ABDOMEN: Liver: Hypoenhancing lesions can be seen within the liver, with the largest seen in segment 7, measuring 3.2 cm. Gallbladder: No radiopaque gallstones or wall thickening. Biliary ducts: No biliary dilation. Pancreas: No ductal dilation. Spleen: Size is within normal limits. Adrenal Glands: Generalized thickening can be seen of the adrenal glands, yet without focal adrenal nodules. Kidneys and Ureters: No hydronephrosis. No solid mass. No complex renal cystic lesion which requires follow up. Bowel and peritoneal: Irregular wall thickening can be seen of the rectum, with hyperenhancement. There is free air and free fluid seen within the presacral region on the right. No madhavi well-developed abscess is seen. Colonic diverticulosis is seen, without findings of active diverticulitis. The more proximal colon is within normal limits. No dilated loops of small bowel are seen. Ventral Wall: No significant ventral hernia. Abdominal Nodes: No retroperitoneal or mesenteric adenopathy by size criteria. Vessels: Aorta and inferior vena cava are normal in size. Atherosclerotic calcification is noted, including within the caprice hepatis. PELVIS: Pelvic Organs: There is fluid seen within the right hemiscrotum. Bladder: No bladder wall thickening, accounting for underdistention. Pelvic Nodes: No enlarged lymph nodes. Miscellaneous: Mild fat containing right inguinal hernia. Bones: There is gas seen within the right aspect of the sacrum. Focal L4-L5 degenerative change is seen. Milder degenerative changes are seen elsewhere. IMPRESSION: Abnormal rectal wall thickening seen, with adjacent free air and free fluid, representing perforated neoplasm until proven otherwise. Gas is seen within the right aspect of the sacrum, which is attributed to bony involvement from this patient's neoplasm. Hypoenhancing masses can be seen within the liver, representing metastatic disease until proven otherwise. Colonic diverticulosis is seen, without findings of active diverticulitis. There is a mild fat containing right inguinal hernia. There is free fluid seen within the right testicle, which may be related to the hernia. Note: Case discussed by telephone with CAMILLA Stanton at 6:51 p.m. [place] time on February 05, 2025. Dictated by: Shree Snider M.D. on 02/05/2025 at 17:42 Approved by: Shree Snider M.D. on 02/05/2025 at 17:53
[2025-02-05 18:01] LABS: Add Manual Diff / Slide Review NO; Basophils Absolute Auto 0 /uL (0-100); Basophils Percent Auto 0.3 % (0-2); Eosinophils Absolute Auto 0 /uL (0-450); Eosinophils Percent Auto 0.4 % (2-4); Hematocrit 25.9 % (41-53); Hemoglobin 8.5 g/dL (13.5-17.5); Lymphocytes Absolute Auto 400 /uL (1100-4500); Lymphocytes Percent Auto 5.9 % (25-40); Mean Corpuscular HGB Conc 32.9 % (30-36); Mean Corpuscular Hemoglobin 25.5 PG (26-34); Mean Corpuscular Volume 77.5 fL (80-100); Monocytes Absolute Auto 900 /uL (0-900); Monocytes Percent Auto 12.5 % (3-14); Neutrophils Absolute Auto 6100 /uL (1500-7000); Neutrophils Percent Auto 80.9 % (50-75); Platelet Count 491 X10^3/uL (150-400); Red Blood Cell Count 3.34 X10^6/uL (4.5-5.9); Red Cell Distribution Width 15.8 % (11.6-14.8); White Blood Cell Count 7.6 X10^3/uL (4.5-11.0)
[2025-02-05 18:10] LABS: Alanine Aminotransferase 17 IU/L (<50); Albumin 3.1 g/dL (3.5-5.0); Albumin Globulin Ratio 0.9 (1.0-2.8); Alkaline Phosphatase 101 U/L (38-126); Aspartate Aminotransferase 27 IU/L (17-59); BUN Creatinine Ratio 18.5 (6-22); Bilirubin Total 0.6 mg/dL (0.2-1.3); Blood Urea Nitrogen 12 mg/dL (9-20); Calcium 8.4 mg/dL (8.4-10.2); Carbon Dioxide 31 mmol/L (22-32); Chloride 94 mmol/L (98-107); Estimated Glomerular Filt Rate > 60 mL/min (>60); Globulin 3.5 g/dL (1.7-4.1); Glucose 105 mg/dL (70-99); HEMOLYSIS < 15 (0-50); Lipase 55 U/L (23-300); Potassium 3.5 mmol/L (3.4-5.1); Sodium 130 mmol/L (137-145); Total Protein 6.6 g/dL (6.3-8.2)
[2025-02-05] MEDS: ONDANSETRON 4 MG/2 ML INJ IV (18:14)
[2025-02-05] MEDS: KETOROLAC 30 MG/ML VIAL 15 MG IV (18:14)
--- NOTE | 2025-02-05 18:17 | PC.NURSE ---
Chaperoned Fabian with rectal exam
[2025-02-05] MEDS: SODIUM CHLORIDE 0.9% 1,000 ML 1000 ML IV (18:38)
[2025-02-05] MEDS: PIPERACILLIN/TAZO 4.5 GM in SODIUM CHLORIDE 0.9% 100 ML IV (19:52)
--- NOTE | 2025-02-05 22:00 | PC.NURSE ---
Pt states he would like something for my restless legs and that he is in 3/10 rectum pain. Provider Salbador made aware and new orders to be placed.
[2025-02-05] MEDS: HYDROMORPHONE 0.5 MG INJ IV (22:29)
[2025-02-05 23:24] LABS: Hematocrit 22.4 % (41-53); Hemoglobin 7.4 g/dL (13.5-17.5)
--- NOTE | 2025-02-05 23:51 | PC.NURSE ---
Provider Salbador made aware of patient repeat labs. No new orders at this time.
== END 2025-02-06 00:05 | disposition short-term general hospital (02) ==
PROVIDERS: Emergency Medicine; Physician Assistant; Emergency Provider Emergency Medicine; Family Provider Family Medicine; PCP Family Medicine
DX: K62.89 Other specified diseases of anus and rectum (principal); R19.8 Other specified symptoms and signs involving the digestive system and abdomen; N39.0 Urinary tract infection, site not specified; D64.9 Anemia, unspecified
CPT/HCPCS: 36415; 74177; 80053; 81003; 81015; 83690; 85014; 85018; 85025; 86850; 86900; 86901; 87040; 87077; 87086; 87186; 96361; 96365; 96375; 99284; 99285; J1171; J1885; J2405; J2543; Q9967

== ENCOUNTER → 2025-03-06 13:21 | Outpatient (CLI) | payer OTHER, SELFPAY ==
[2025-03-06 14:38] LABS: Basophils Absolute Auto 100 /uL (0-100); Basophils Percent Auto 2.1 % (0-2); Eosinophils Absolute Auto 300 /uL (0-450); Eosinophils Percent Auto 4.3 % (2-4); Hematocrit 35.9 % (41-53); Hemoglobin 11.7 g/dL (13.5-17.5); Lymphocytes Absolute Auto 900 /uL (1100-4500); Lymphocytes Percent Auto 14.8 % (25-40); Mean Corpuscular HGB Conc 32.6 % (30-36); Mean Corpuscular Hemoglobin 26.6 PG (26-34); Mean Corpuscular Volume 81.7 fL (80-100); Monocytes Absolute Auto 900 /uL (0-900); Monocytes Percent Auto 14.4 % (3-14); Neutrophils Absolute Auto 3900 /uL (1500-7000); Neutrophils Percent Auto 64.4 % (50-75); Platelet Count 435 X10^3/uL (150-400); Red Cell Distribution Width 20.7 % (11.6-14.8)
[2025-03-06 14:50] LABS: HEMOLYSIS < 15 (0-50); Iron 82 ug/dL (49-181)
[2025-03-06 14:51] LABS: Add Manual Diff / Slide Review SLIDE REVIEW
[2025-03-06 14:52] LABS: Alanine Aminotransferase 14 IU/L (<50); Albumin 4.3 g/dL (3.5-5.0); Albumin Globulin Ratio 1.3 (1.0-2.8); Alkaline Phosphatase 132 U/L (38-126); Aspartate Aminotransferase 31 IU/L (17-59); BUN Creatinine Ratio 21.8 (6-22); Bilirubin Total 0.5 mg/dL (0.2-1.3); Blood Urea Nitrogen 17 mg/dL (9-20); Calcium 9.5 mg/dL (8.4-10.2); Carbon Dioxide 31 mmol/L (22-32); Chloride 100 mmol/L (98-107); Estimated Glomerular Filt Rate > 60 mL/min (>60); Globulin 3.4 g/dL (1.7-4.1); Glucose 88 mg/dL (70-99); HEMOLYSIS < 15 (0-50); Sodium 137 mmol/L (137-145); Total Protein 7.7 g/dL (6.3-8.2)
[2025-03-06 14:53] LABS: Potassium 5.4 mmol/L (3.4-5.1)
[2025-03-06 15:01] LABS: Percent Iron Saturation 24 % (20-50); Total Iron Binding Capacity 342 ug/dL (261-462); Transferrin 303 mg/dL (206-381)
[2025-03-06 15:02] LABS: Anisocytosis 1+
== END ==
PROVIDERS: Family Medicine; Family Provider Family Medicine; PCP Family Medicine; Referring Provider Family Medicine; Visit Provider Family Medicine
DX: Z12.11 Encounter for screening for malignant neoplasm of colon (principal); C20 Malignant neoplasm of rectum; C78.7 Secondary malignant neoplasm of liver and intrahepatic bile duct
CPT/HCPCS: 36415; 80053; 83540; 83550; 85025